=== PATIENT | female | born 1950 | race Caucasian/White ===

== ENCOUNTER 2020-02-13 17:55 | Observation (INO) | payer MEDICARE, OTHER, SELFPAY ==
[2020-02-13] VITALS (10 sets, daily range): BP systolic 138–185; BP diastolic 46–115; PULSE 55–87; RESP 12–18; TEMP 36.8; O2SAT 95–100
--- NOTE | ~2020-02-13 | XR_ITS ---
EXAMINATION: XR chest 2V DATE: 02/13/2020 19:15 INDICATION: Dizziness TECHNIQUE: PA and lateral views of the chest are obtained. COMPARISON: 03/12/2017 FINDINGS: The lungs are free of acute opacities. There is no pleural effusion or pneumothorax. The ca rdiomediastinal silhouette is normal. There is mild thoracic spondylosis. There is thoracolumbar dext rocurvature. IMPRESSION: 1. No acute cardiopulmonary abnormality. Reviewed, dictated and finalized at location A. LE PLACER
--- NOTE | ~2020-02-13 | CT_ITS ---
EXAMINATION: CT brain wo con INDICATION: Dizziness COMPARISON: 03/12/2017 TECHNIQUE: Standard unenhanced head CT. The dose-length product (DLP) was 605.33 mGy-cm. The mA was a djusted according to patient size. Iterative reconstruction technique was employed. FINDINGS: There is no acute intraparenchymal hemorrhage. No evidence of mass lesion. No evidence of a cute infarction. There is mild periventricular and subcortical hypodensity probably related to small vessel ischemic disease. There is mild prominence of the sulci and ventricles related to cerebral atr ophy. Intracranial calcified cerebral atherosclerosis is noted. There are no extra-axial collections. There is no mass effect or midline shift. The orbits and soft tissues are unremarkable. The visuali zed sinuses and mastoid air cells are well aerated. IMPRESSION: 1. No acute intracranial abnormality. 2. Age related findings. Reviewed, dictated and finalized at location A. PROCESSING OPERATOR
--- NOTE | ~2020-02-13 | CT_ITS ---
EXAMINATION: CTA brain carotid DATE: 02/13/2020 21:28 INDICATION: Dizziness. TECHNIQUE: Computed tomographic angiography (CTA) of the head was performed with 100 mL Omnipaque-350 intravenous contrast. CTA of the neck was performed with intravenous contrast. Automated exposure co ntrol and iterative reconstruction technique were employed. The dose-length product was 1005.62 mGy-c m. Maximum intensity projection and volume rendered 3D-reconstructions were created by the [employer] st on a separate workstation. COMPARISON: Head CT 02/13/2020, 03/12/2017, brain MRI 03/12/2017 FINDINGS: HEAD CTA: There is an old infarct in the left thalamus. There is no intracranial hemorrhage, acute in farction, or abnormal intracranial mass lesion. The ventricles are normal in size. There is mild muco gaby thickening in left maxillary sinus. The mastoid air cells are normal. The orbits are normal. Left vertebral artery is dominant. There is no significant stenosis of basilar artery or the posterior ce rebral arteries. There is no significant stenosis of the intracranial internal carotid arteries or an terior or middle cerebral arteries. Anterior communicating artery is normal. The posterior communicat ing arteries are normal. There is no aneurysm. NECK CTA: There is mild scarring at the lung apices. There are no pathologically enlarged lymph nodes . There is no significant stenosis of the vertebral arteries. There is mild plaque in the proximal in ternal carotid ovaries. There is 0% stenosis of the proximal right internal carotid artery relative to normal distal artery lumen diameter (NASCET criteria). There is 0% stenosis of the proximal left i nternal carotid artery relative to normal distal artery lumen diameter. There is severe cervical spon dylosis. IMPRESSION: 1. Old infarct in the left thalamus. 2. No aneurysm or significant intracranial arterial stenosis. 3. 0% stenosis of the proximal internal carotid arteries relative to normal distal artery lumen diame ters (NASCET criteria). Reviewed, dictated and finalized at location B. IAC CATH TECHNOLOGIST IMPRESSION: 1. Old infarct in the left thalamus. 2. No aneurysm or significant intracranial arterial stenosis. 3. 0% stenosis of the proximal internal carotid arteries relative to normal dis caitlin artery lumen diameters (NASCET criteria).
--- NOTE | ~2020-02-13 | MR_ITS ---
EXAMINATION: MR brain/brain stem wo/w con DATE: 02/14/2020 13:14 INDICATION: Dizziness. Confusion. TECHNIQUE: Magnetic resonance imaging (MRI) of the brain and brainstem was performed without and with 12 mL MultiHance intravenous contrast. Sequences included sagittal and axial T1-weighted FSE, axial diffusion-weighted FS EPI, axial T2*-weighted GRE, axial T2-weighted FLAIR Propeller, and axial T2-we ighted Propeller. Postcontrast sequences included axial and coronal T1-weighted FSE. Apparent diffusi on coefficient (ADC) maps were created. COMPARISON: Brain MRI 03/12/2017, head CT 02/13/2020 FINDINGS: There is an old infarct in left thalamus. There are scattered areas of nonspecific increase d T2-weighted signal intensity in the cerebral white matter, which is within normal limits for the pa tient's age. There is no intracranial hemorrhage, acute infarction, or abnormal intracranial mass les ion. The ventricles are normal in size. The paranasal sinuses are clear. The orbits are normal. The m astoid air cells are normal. IMPRESSION: 1. Old infarct in left thalamus. Reviewed, dictated and finalized at location B. D SERVICES ANALYST
--- NOTE | 2020-02-13 18:03 | ECG_ITS ---
Measurements Intervals Frannie Rate: 77 P: 63 DE: 181 QRS: 35 QRSD: 89 T: 67 QT: 377 QTc: 427 Interpretive Statements SINUS RHYTHM VENTRICULAR PREMATURE COMPLEX ST ABNORMALITY IN LATERAL LEADS- CONSIDER ISCHEMIA ABNORMAL ECG Electronically Signed On 02-13-2020 18:08:50 SECURITY SUPERVISOR by José Jarrett D.O.
[2020-02-13 18:41] LABS: Basophils Absolute Auto 0.1 K/mm3 (0.0-0.1); Basophils Percent Auto 0.9 % (0.2-1.2); Eosinophils Absolute Auto 0.3 K/mm3 (0-0.3); Eosinophils Percent Auto 3.8 % (0-4.4); Hematocrit 46.9 % (37.0-47.0); Immature Granulocyte Absolute 0.01 K/mm3 (0.00-0.031); Immature Granulocyte Percent A 0.1 % (0-0.5); Lymphocytes Absolute Auto 1.87 K/mm3 (0.9-3.2); Lymphocytes Percent Auto 27.3 % (18.3-44.2); Mean Corpuscular HGB Conc 34.1 g/dl (32-36); Mean Corpuscular Volume 87.8 fl (80-100); Mean Platelet Volume 11.2 fl (7.4-10.4); Monocytes Absolute Auto 0.6 K/mm3 (0.1-0.6); Neutrophils Absolute Auto 4.1 K/mm3 (1.3-6.7); Neutrophils Percent Auto 59.9 % (45.5-73.1); Platelet Count Result 170 k/mm3 (150-375); Red Blood Count 5.34 M/mm3 (4.2-5.4); Red Cell Distribution Width 12.8 % (11.5-14.5); White Blood Count 6.9 K/mm3 (4.5-10.0)
[2020-02-13 18:52] LABS: Anion Gap 6 mmol/L (8-16); Blood Urea Nitrogen 15 mg/dL (7-17); Calcium 9.3 mg/dL (8.4-10.2); Carbon Dioxide 30 mmol/L (22-30); Chloride 104 mmol/L (98-107); Estimated CRCL calculation 66 ml/min; Estimated Glomerular Filt Rate > 60; Glucose 92 mg/dL (65-105); Potassium 3.9 mmol/L (3.4-5.0); Sodium 140 mmol/L (137-145)
[2020-02-13] MEDS: LABETALOL HCL INJ 100 MG/20 ML VIAL 10 MG IV PUSH (19:02)
--- NOTE | 2020-02-13 19:03 | ED.DIZZY ---
HPI - Dizziness General Chief Complaint: Dizziness <Emily Cantu PA-C - Last Filed: 02/13/20 21:49> Stated Complaint: htn <WILLIAMS Prabhakar Last Filed: 02/13/20 21:49> Time Seen by Provider: 02/13/20 18:44 <WILLIAMS Prabhakar Last Filed: 02/13/20 21:49> Source: patient <WILLIAMS Prabhakar Last Filed: 02/13/20 21:49> Mode of arrival: ambulatory <WILLIAMS Prabhakar Last Filed: 02/13/20 21:49> Limitations: no limitations <WILLIAMS Prabhakar Last Filed: 02/13/20 21:49> History of Present Illness HPI Narrative: This is a 69 year old female that presents to the ER for dizziness since this afternoon. Reports she was sitting at home and started to feel dizzy. Reports over the last couple of weeks she has been having pressure in her ears. She thought she may have an inner ear infection so she went to the urgent care. Reports her blood pressure was elevated there, so they sent her to the ED. Reports a brief episode of chest pain while at the urgent care that she describes as an ache. Reports this resolved on its own. Denies fever, vision changes, vomiting, numbness or weakness. <Emily Cantu PA-C - Last Filed: 02/13/20 21:49> Related Data Allergies/Adverse Reactions: Allergies Allergy/AdvReac Type Severity Reaction Status Date / Time No Known Allergies Allergy Mild Verified 02/13/20 18:26 <WILLIAMS Prabhakar Last Filed: 02/13/20 21:49> Review of Systems Review of Systems: Narrative: CONSTITUTIONAL: Denies fever EYES: Denies visual changes ENT: Reports otalgia. CARDIOVASCULAR: Denies current chest pain RESPIRATORY: Denies cough or dyspnea. GASTROINTESTINAL: Denies vomiting GENITOURINARY: Denies dysuria NEUROLOGIC: Denies headache, numbness, or weakness. <WILLIAMS Prabhakar Last Filed: 02/13/20 21:49> All systems reviewed & are unremarkable except as noted in HPI and below <Emily Cantu PA-C - Last Filed: 02/13/20 21:49> PMFSH Past Medical History Medical History: Medical History (Updated 02/13/20 @ 21:45 by Emily Cantu PA-C) History of CVA (cerebrovascular accident) History of hyperlipidemia History of hypertension History of hypothyroidism <Emily Cantu PA-C - Last Filed: 02/13/20 21:49> Exam Narrative: Exam Narrative: GENERAL: Well-appearing, well-nourished, and in no acute distress. HEAD: Normocephalic, atraumatic. EYES: PERRLA and EOMI. ENT: Nares clear, no rhinorrhea or epistaxis. Mucous membranes moist. Oropharynx without tonsillar hypertrophy exudate or other lesions. Bilateral TMs pearly pendleton non-bulging NECK: Supple. No adenopathy or masses. No carotid bruits or JVD CHEST: Clear to auscultation. No respiratory distress. No wheezes rales or rhonchi HEART: Regular rate and rhythm. No murmur heard. Normal peripheral pulses. EXTREMITIES: Normal range of motion. No edema. Strength equal in bilateral upper and lower extremities (5/5) SKIN: Warm, dry, no rash. NEURO: No focal deficits. Alert and oriented x3. Cranial nerves II through XII grossly intact. Normal aprwyh-my-twoa PSYCH: Normal mood and affect <Emily Cantu PA-C - Last Filed: 02/13/20 21:49> Course MANDOLIN REPAIRER/PA Physician Supervision Pt seen and examined, vss, nad, RRR, ctab, awake and oriented x 3, strength, sensation within normal limits. Agree with current plan and treatment. <Lul Grubbs MD - Last Filed: 02/13/20 21:51> Consultations Consultation #1: Spoke with Dr. Dey about patient and work-up who will consult. Would like CTA and MRI of the brain ordered. <Emily Cantu PA-C - Last Filed: 02/13/20 21:49> Date: 02/13/20 <Emily Cantu PA-C - Last Filed: 02/13/20 21:49> Time: 21:48 <Emily Cantu PA-C - Last Filed: 02/13/20 21:49> Consultation #2: Spoke with hospitalist about patient and work-up who accepts admission <Emily Cantu PA-C - Last Filed: 02/13/20 21:49> Date: 02/13/20 <E
[2020-02-13 19:24] LABS: Troponin I < 0.012 ng/mL (0.000-0.034)
[2020-02-13] MEDS: MECLIZINE HCL 25 MG TABLET PO (19:29)
[2020-02-13] MEDS: SODIUM CHLORIDE 0.9% IV 1,000 ML 999 ML IV CONT (19:29)
--- NOTE | 2020-02-13 20:33 | PC.NURSE ---
PT AMBULATED TO RESTROOM W/ NO DIFFICULTY
--- NOTE | 2020-02-13 22:25 | PM.IMHP ---
H&P: HPI History of Present Illness Date/Time: 02/13/20 22:25 Chief complaint: Rule out CVA, hypertensive urgency Narrative: This is a pleasant 69 year old female with known history of previous CVA, HTN, and hypothyroidism who presented from Urgent Care today to the hospital after she was found to have an elevated blood pressure. The patient went to Urgent care because she started to experience dizziness this afternoon while she was sitting on her cough. She has had left ear pressure recently and believed that she might have been having another ear infection as she has had several ear infections recently. The patient's dizziness improved in the ER once her blood pressure started to come down with medications. She denies any blurry vision or visual disturbances. She does admit that when she was dizzy she was also somewhat confused but did not actually have any slurred speech. She also denies any facial droop, headache, nausea, vomiting, passing out, seizure like activity, numbness, tingling, or focal weakness. The patient denies started any new medications and states she is currently looking for a new PCP. She does report that en route to the hospital she had a brief episode of chest discomfort that lasted a brief moment. Brain CT was unremarkable for any acute pathology. Routine labs were obtained and were unremarkable. The patient was treated with aspirin and ER provider has consulted Neurology who has asked that we obtain a Brain MRI in am and they will see her. No other complaints. Review of Systems Review of Systems: All systems reviewed & are unremarkable except as noted in HPI and below PMFSH Past Medical History Medical History (Updated 02/14/20 @ 06:35 by Antonio Zepeda MD) History of CVA (cerebrovascular accident) History of hyperlipidemia History of hypertension History of hypothyroidism Surgical History Surgical History (Updated 02/13/20 @ 22:40 by Antonio Zepeda MD) H/O: hysterectomy Family History Family History (Updated 02/14/20 @ 00:31 by Rosaura Maddox RN) Mother Diabetes mellitus Sibling Diabetes mellitus Father Heart disease Other Hypertension Social History Social History (Updated 02/13/20 @ 22:40 by Antonio Zepeda MD) Smoking status: Never smoker Alcohol intake: never Substance use: never Gender identity (if verbalized by the patient): Female Spiritual care concerns: No Meds Home Medications and Allergies Home Medications Medication Instructions Recorded Confirmed Type aspirin [Adult Aspirin EC Low 81 mg PO DAILY 02/14/20 02/14/20 History Strength] clopidogrel [Plavix] 75 mg PO DAILY 02/14/20 02/14/20 History estradiol [Estradiol Transdermal 1 patch TRANSDERMAL WEEKLY 02/14/20 02/14/20 History Patch] levothyroxine [Synthroid] 88 mcg PO DAILY 02/14/20 02/14/20 History lisinopril 20 mg PO DAILY 02/14/20 02/14/20 History metoprolol succinate 100 mg PO DAILY 02/14/20 02/14/20 History whrujpcawtbr-vga-onuq-FA-vit K 1 tablet PO DAILY 02/14/20 02/14/20 History [Adults Multivitamin] simvastatin 40 mg PO HS 02/14/20 02/14/20 History Allergies Allergy/AdvReac Type Severity Reaction Status Date / Time No Known Allergies Allergy Mild Verified 02/13/20 18:26 Vital Signs Vital Signs - 24 hr 02/13/20 17:59 02/13/20 18:15 02/13/20 19:00 Temperature 36.8 C Pulse Rate 81 76 55 L Respiratory Rate 15 12 16 Blood Pressure 185/115 H 170/97 H 181/46 H Pulse Oximetry 99 95 99 02/13/20 19:27 02/13/20 20:26 02/13/20 20:30 Temperature Pulse Rate 78 74 87 Respiratory Rate 18 15 Blood Pressure 155/90 H 155/79 H 154/85 H Pulse Oximetry 99 96 02/13/20 20:43 02/13/20 21:29 02/13/20 22:16 Temperature Pulse Rate 80 82 74 Respiratory Rate 18 18 Blood Pressure 153/87 H 139/83 147/89 H Pulse Oximetry 99 100 Exam Const: General: cooperative, healthy appearing, no acute distress, alert and awake Nutritional Frances
[2020-02-14 02:00] VITALS: BP 147/79; PULSE 70; RESP 20; TEMP 36.5; O2SAT 98
[2020-02-14 02:05] VITALS: BMI 22.2
[2020-02-14 04:00] VITALS: PULSE 64
[2020-02-14 05:47] LABS: Basophils Absolute Auto 0.1 K/mm3 (0.0-0.1); Basophils Percent Auto 1.1 % (0.2-1.2); Eosinophils Absolute Auto 0.2 K/mm3 (0-0.3); Eosinophils Percent Auto 2.9 % (0-4.4); Hematocrit 43.5 % (37.0-47.0); Hemoglobin 14.5 g/dL (12.0-15.0); Immature Granulocyte Absolute 0.01 K/mm3 (0.00-0.031); Immature Granulocyte Percent A 0.2 % (0-0.5); Lymphocytes Absolute Auto 2.05 K/mm3 (0.9-3.2); Mean Corpuscular HGB Conc 33.3 g/dl (32-36); Mean Corpuscular Hemoglobin 29.4 pg (26-34); Mean Corpuscular Volume 88.1 fl (80-100); Mean Platelet Volume 11.5 fl (7.4-10.4); Monocytes Absolute Auto 0.5 K/mm3 (0.1-0.6); Monocytes Percent Auto 7.3 % (2.6-8.5); Neutrophils Absolute Auto 3.8 K/mm3 (1.3-6.7); Neutrophils Percent Auto 57.5 % (45.5-73.1); Platelet Count Result 160 k/mm3 (150-375); Red Blood Count 4.94 M/mm3 (4.2-5.4); Red Cell Distribution Width 12.7 % (11.5-14.5); White Blood Count 6.6 K/mm3 (4.5-10.0)
[2020-02-14 05:57] LABS: Anion Gap 6 mmol/L (8-16); Blood Urea Nitrogen 10 mg/dL (7-17); Calcium 8.6 mg/dL (8.4-10.2); Carbon Dioxide 30 mmol/L (22-30); Chloride 106 mmol/L (98-107); Estimated CRCL calculation 73 ml/min; Estimated Glomerular Filt Rate > 60; Glucose 86 mg/dL (65-105); Magnesium 2.4 mg/dL (1.6-2.3); Potassium 3.5 mmol/L (3.4-5.0); Sodium 142 mmol/L (137-145)
[2020-02-14 06:00] VITALS: BP 139/63; PULSE 68; RESP 21; TEMP 36.3; O2SAT 100
[2020-02-14 06:40] LABS: Free T4 Free Thyroxine 1.48 ng/mL (0.78-2.19)
--- NOTE | 2020-02-14 06:53 | ADMGEN ---
This patient, Mabel Stanley, was admitted to Medical Room 261-01 on 02/14/2020 at 0005. Patient/family oriented to hospital policies and general routines including ID bracelet, bed and alarms, visiting hours, pain management, procedures, bathroom and other care routines, personal items, smoking policy, room service/diet, and visiting hours. Information on how to activate the Rapid Response Team has been discussed. Patient/Family are encouraged to report perceived risks to care and to ask questions if they do not understand what they are told or what they should do.
[2020-02-14 08:00] VITALS: PULSE 79
[2020-02-14] MEDS: CLOPIDOGREL BISULFATE 75 MG TABLET PO (09:09)
[2020-02-14] MEDS: lisinopriL 20 MG TABLET PO (09:09)
[2020-02-14] MEDS: ASPIRIN 81 MG ENTERIC TABLET PO (09:09)
[2020-02-14 09:10] VITALS: PULSE 84
[2020-02-14] MEDS: METOPROLOL SUCCINATE EXT REL 100 MG TABCR PO (09:10)
--- NOTE | 2020-02-14 09:43 | WPDNEURCNPN ---
Assessment and Plan Assessment and plan (1) Bradycardia: Code(s): R00.1 - Bradycardia, unspecified Status: Acute (2) History of hyperlipidemia: Code(s): Z86.39 - Personal history of other endocrine, nutritional and metabolic disease Status: Chronic (3) Dizziness: Code(s): R42 - Dizziness and giddiness Status: Acute (4) Transient ischemic attack: Code(s): G45.9 - Transient cerebral ischemic attack, unspecified Status: Acute Additional Plan nonspecific dizziness with history of hypertension in the past documented old stroke and negative CTA scan of the brain and neck at this time patient can be treated only with anti anti-platelet medication on a regular basis and follow up with a physician on a regular basis as well Consult date: 02/14/20 Time Seen: 09:45 HPI: Mabel Stanley is a 69 year old female has been admitted to the hospital subsequent to her being found with elevated blood pressure, reportedly initially she went to the urgent care where she complained of dizziness along with the pressure in her left ear, once in the ER blood pressure started to come down .she gave history of no associated neurological symptomatology but was noted by the ER personnel to have slurred speech.she gave history of no other neurological symptoms .she did have and brief episode of chest discomfort. CT scan of the brain was normal she received aspirin and was admitted to the hospital for further evaluation, in the past she has ongoing history of hyperlipidemia,hypertension and hypothyroidism in addition to history of hysterectomy. she is not a smoker ,initial CT scan of the brain was negative and CTA documented no stenosis of the proximal internal carotid arteries relative the normal distal artery lumen no aneurysm and no significant involvement of the intracranial arteries and additionally documented old infarct in the left thalamus routine lab studies were normal Review of Systems Review of Systems: All systems reviewed & are unremarkable except as noted in HPI and below PMFSH Past Medical History Medical History History of CVA (cerebrovascular accident) History of hyperlipidemia History of hypertension History of hypothyroidism Surgical History Surgical History H/O: hysterectomy Family History Family History Mother Diabetes mellitus Sibling Diabetes mellitus Father Heart disease Other Hypertension Social History Social History Smoking status: Never smoker Alcohol intake: never Substance use: never Gender identity (if verbalized by the patient): Female Spiritual care concerns: No Meds Home Medications and Allergies Home Medications Medication Instructions Recorded Confirmed Type aspirin [Adult Aspirin EC Low 81 mg PO DAILY 02/14/20 02/14/20 History Strength] clopidogrel [Plavix] 75 mg PO DAILY 02/14/20 02/14/20 History estradiol [Estradiol Transdermal 1 patch TRANSDERMAL WEEKLY 02/14/20 02/14/20 History Patch] levothyroxine [Synthroid] 88 mcg PO DAILY 02/14/20 02/14/20 History lisinopril 20 mg PO DAILY 02/14/20 02/14/20 History metoprolol succinate 100 mg PO DAILY 02/14/20 02/14/20 History vzftayngcozr-esq-adhl-FA-vit K 1 tablet PO DAILY 02/14/20 02/14/20 History [Adults Multivitamin] simvastatin 40 mg PO HS 02/14/20 02/14/20 History Allergies Allergy/AdvReac Type Severity Reaction Status Date / Time No Known Allergies Allergy Mild Verified 02/13/20 18:26 Vital Signs Vital Signs - 24 hr 02/13/20 17:59 02/13/20 18:15 02/13/20 19:00 Temperature 36.8 C Pulse Rate 81 76 55 L Respiratory Rate 15 12 16 Blood Pressure 185/115 H 170/97 H 181/46 H Pulse Oximetry 99 95 99 02/13/20 19:27 02/13/20 20:26 02/13/20 20:30 Temperature Puls
[2020-02-14] MEDS: LEVOTHYROXINE SODIUM 88 MCG TABLET PO (10:36)
[2020-02-14 12:00] VITALS: PULSE 72
--- NOTE | 2020-02-14 15:04 | PM.DS ---
DS: Admitting Diagnosis Admitting Diagnosis Admitting Diagnosis: Rule out CVA, hypertensive urgency DS: Discharge Diagnosis Discharge Diagnosis (1) Dizziness: Code(s): R42 - Dizziness and giddiness Status: Acute Assessment and Plan: Patient presented complaints of dizziness That resolved upon arrival. May have been secondary to hypertensive urgency and/or eustachian tube dysfunction. She has a history of CVA and TIA. Thorough stroke workup performed as noted below negative for any acute findings. Dizziness resolved. (2) Hypertensive urgency: Code(s): I16.0 - Hypertensive urgency Status: Acute Assessment and Plan: Blood pressure on arrival was 185/115. She received a one time dose of labetalol which improved her blood pressure to 150s/80s. Blood pressure was monitored closely overnight and returned to baseline with home regimen of lisinopril and metoprolol. BP at time of discharge was 139/63. Discussed avoiding decongestant medications that can raise blood pressure. Recommended monitoring blood pressure 3 to 4 times weekly at home and recording for review by PCP to determine if adjustments to home regimen should be made.. (3) History of CVA (cerebrovascular accident): Code(s): Z86.73 - Personal history of transient ischemic attack (TIA), and cerebral infarction without residual deficits Status: Inactive Assessment and Plan: Reports history CVA 10 years ago. Reports personal history multiple TIAs, most recently 1 year ago. She notes residual sensory deficits of right side. Head CT negative for any acute findings. Head/neck CTA showed old infarct in left thalamus, no evidence of aneurysm or stenosis, and 0% stenosis of proximal internal carotid arteries. MRI also showed old infarct in left thalamus with no acute findings. Continue aspirin and Plavix. Follow-up with neurology in 3 months. (4) Eustachian tube dysfunction: Code(s): H69.80 - Other specified disorders of Eustachian tube, unspecified ear Status: Acute Assessment and Plan: Patient complained of congestion and ear fullness. She had been evaluated in urgent care several days prior and was not found to have an infection. She began taking xjsz-ygd-ybqkoxq decongestants which improved her aural fullness. We discussed avoiding decongestants that can increase her blood pressure. She should follow-up with her PCP and may benefit from referral to ENT if eustachian tube dysfunction persists. She was given a prescription for nasal saline spray. (5) History of hypothyroidism: Code(s): Z86.39 - Personal history of other endocrine, nutritional and metabolic disease Status: Chronic Assessment and Plan: T4 wnl. Continue levothyroxine. (6) History of hyperlipidemia: Code(s): Z86.39 - Personal history of other endocrine, nutritional and metabolic disease Status: Chronic Assessment and Plan: Continue simvastatin. DS: Summary Hospital Course Reason for hospitalization: Dizziness Hospital Course: Date of admission: 02/13/2020 Date of discharge: 02/14/2020 Mabel Stanley is a 69-year-old female with history of CVA, TIA, hyperlipidemia, and hypertension who presented to the emergency department on 02/13/2020 with complaints of dizziness that began earlier that day. She had been complaining of ear fullness and was evaluated in urgent care. She had been taking qwgn-lkv-kwnmjeu decongestant medication. Upon arrival to the urgent care, her BP was noted to be elevated and she was referred to the ED. At presentation, BP 185/115, additional vital signs stable. BP improved to 139/83 with a dose of labetalol. CBC and electrolytes within normal limits, troponin negative, head CT with no acute findings and chest x-ray with no cardiopulmonary abnormalities. She was admitted to the hospitalist service for further evaluation and management was seen in consultatio
== END 2020-02-14 16:25 | disposition home or self-care (01) ==
LOC: ANHED 21:45 → ANH2MED 22:52
PROVIDERS: Physician Assistant; Admitting Provider Family Medicine; Emergency Provider Emergency Medicine; Visit Provider Family Medicine
DX: R42 Dizziness and giddiness (principal); I16.0 Hypertensive urgency; Z86.73 Personal history of transient ischemic attack (TIA), and cerebral infarction without residual deficits; H69.80 Other specified disorders of Eustachian tube, unspecified ear; E78.5 Hyperlipidemia, unspecified; E03.9 Hypothyroidism, unspecified; R94.31 Abnormal electrocardiogram [ECG] [EKG]; Z86.39 Personal history of other endocrine, nutritional and metabolic disease
CPT/HCPCS: 36415; 70450; 70496; 70498; 70553; 71046; 80048; 83735; 84439; 84484; 85025; 93005; 96361; 96374; 99285; A9270; A9577; G0378; J7030; Q9967

== ENCOUNTER 2024-04-03 15:06 | Emergency (ER) | payer MEDICARE, OTHER, SELFPAY ==
--- NOTE | ~2024-04-03 | XR_ITS ---
XR hip RT 2V w AP pelvis Ordering provider: Luke Newman MD History: . fall-PAIN IN RIGHT BUTTOCK AND HIP . Comparison: None. FINDINGS: BONES: Sclerotic changes in the area of the greater tuberosity. Possibility of fracture cannot be exc luded although less likely. Small bony fragment seen near to the greater tuberosity is most likely se samoid bone. If still suspicious CT is advised. HIP JOINT SPACES: Normal. SACROILIAC JOINT SPACES/LUMBAR SPINE: The sacroiliac joint spaces are normal. Mild degenerative sanchez es of the visualized lower lumbar spine. PUBIC SYMPHYSIS: Pubic symphysitis. SOFT TISSUES: Normal. IMPRESSION: No definite acute osseous abnormality pelvis and right hip. Sclerotic area in the greater tuberosity. If still clinically suspicious CT is advised. Reviewed, dictated and finalized at location A. [employer] G[employer] DES[employer] IMPRESSION: No definite acute osseous abnormality pelvis and right hip. Sclerotic area in t he greater tuberosity. If still clinically suspicious CT is advised.
--- NOTE | ~2024-04-03 | CT_ITS ---
CT lumbar spine wo con Ordering provider: Adis Castillo PA-C History: 73 years Female with . fall from 3 foot ladder . Comparison: None. Technique: CT lumbar spine without contrast. Automated exposure control and iterative reconstruction technique were employed. The dose-length product was 428.04 mGy-cm. FINDINGS: VERTEBRAE: Normal height and alignment. No subluxation or visible acute fracture. Lumbarization of S1 is noted. Mild levoscoliosis. DISC SPACES: Well maintained. Facet joint disease at the level of L4-L5, and L5-S1. T12-L1: No stenosis. L1-L2: No stenosis. L2-L3: No stenosis. L3-L4: No stenosis. Mild diffuse disc bulge with slight narrowing of the right foramen. L4-L5: No stenosis. Diffuse disc bulge with slight narrowing of the right foramen. L5-S1: No stenosis. Diffuse disc bulge with slight bilateral narrowing of the foramina. Root jimy paulina is highly suggestive. PARASPINOUS SOFT TISSUES: Mild atheromatous disease of the abdominal aorta. IMPRESSION: No acute osseous abnormality. Multilevel disc bulges with variable degrees of intervertebral foraminal narrowing. Reviewed, dictated and finalized at location A. [employer] P[employer] IMPRESSION: No acute osseous abnormality. Multilevel disc bulges with variable degrees of intervertebral foraminal narrow ing.
[2024-04-03 15:35] VITALS: BP 160/85; PULSE 70; RESP 16; TEMP 36.7; O2SAT 100
--- NOTE | 2024-04-03 16:39 | ED.FALL ---
HPI - Fall General Chief Complaint: Fall Stated Complaint: fell from ladder. Time Seen by Provider: 04/03/24 16:06 Source: patient Mode of arrival: ambulatory Limitations: no limitations History of Present Illness HPI Narrative: This is a 73-year-old female who presents to the ED for chief complaint of a fall from ladder today. Reports that she fell approximately 3 ft from the ground and landed on the left side. She reports a little bit of left shoulder and left hip pain that subsided, however now she is having increasing right hip pain with ambulation. States she is able to bear weight but it is painful to the right posterior hip and back. Denies numbness, weakness, bowel or bladder dysfunction. Denies any head injury or other sites of injury. Related Data Home Medications ?Medication ?Instructions ?Recorded ?Confirmed ?Last Taken ?Type aspirin 81 mg tablet,delayed 81 mg PO DAILY 02/14/20 02/14/20 Unknown History release clopidogrel 75 mg tablet (Plavix) 75 mg PO DAILY 02/14/20 02/14/20 Unknown History estradiol 0.05 mg/24 hr weekly 1 patch transdermal WEEKLY 02/14/20 02/14/20 Unknown History transdermal patch levothyroxine 88 mcg tablet 88 mcg PO DAILY 02/14/20 02/14/20 Unknown History (Synthroid) lisinopril 20 mg tablet 20 mg PO DAILY 02/14/20 02/14/20 Unknown History metoprolol succinate 100 mg 100 mg PO DAILY 02/14/20 02/14/20 Unknown History tablet,extended release 24 hr multivit with minerals-iron 18 1 tablet PO DAILY 02/14/20 02/14/20 Unknown History mg-folic ac 400 mcg-vit K 25 mcg tablet (Adults Multivitamin) simvastatin 40 mg tablet 40 mg PO HS 02/14/20 02/14/20 Unknown History Allergies Allergy/AdvReac Type Severity Reaction Status Date / Time No Known Allergies Allergy Mild Verified 02/13/20 18:26 Review of Systems Review of Systems: All systems as dictated in HPI [facility] Past Medical History Medical History (Updated 04/03/24 @ 18:05 by Adis Castillo PA-C) History of hyperlipidemia History of hypothyroidism History of CVA (cerebrovascular accident) History of hypertension Surgical History Surgical History H/O: hysterectomy Family History Family History Mother Diabetes mellitus Sibling Diabetes mellitus Father Heart disease Other Hypertension Social History Social History Smoking status: Never smoker Alcohol intake: never Substance use: never Gender identity (if verbalized by the patient): Female Spiritual care concerns: No Exam Narrative: GENERAL: Well-appearing, well-nourished, and in no acute distress. HEAD: Normocephalic, atraumatic. EYES: PERRLA and EOMI. ENT: Nares clear, no rhinorrhea or epistaxis. Mucous membranes moist. Oropharynx without tonsillar hypertrophy exudate or other lesions. NECK: Supple. No adenopathy or masses. CHEST: No respiratory distress. Clear to auscultation. No wheezes rales or rhonchi HEART: Regular rate and rhythm. No murmur heard. Normal peripheral pulses. ABDOMEN: Soft, nontender, nondistended, normal active bowel sounds. MSK: Ambulatory without assistive devices, however does appear in pain. Right posterior hip/SI joint tenderness present. Mild lumbar spine tenderness to the midline. 5/5 strength and sensation to the upper and lower extremities. Normal range of motion. No edema. SKIN: Warm, dry, no rash. NEURO: Alert and oriented x4. No focal deficits. PSYCH: Normal mood and affect. Course Vital Signs Vital signs: Vital Signs Temperature 98.1 F 04/03/24 15:35 Pulse Rate 70 04/03/24 15:35 Respiratory Rate 16 04/03/24 15:35 Blood Pressure 160/85 H 04/03/24 15:35 Pulse Oximetry 100 04/03/24 15:35 Temperature 97.8 F 04/03/24 18:32 Pulse Rate 78 04/03/24 18:32 Respiratory Rate 16 04/03/24 18:32 Blood Pressure 136/80 04/03/24 18:32 Pulse Oximetry 100 04/03/24 18:32 MDM - Fall MDM Narrative Medical decision making narrative: 73-year-old female presenting for fall from 3 ft height with subsequent right posterior hip pain. Vitals are normal. Exam shows tenderness to the above area. X-rays of the right hip and CT scan of the lumbar spine are negative for acute osseous findings. Presentation consistent with musculoskeletal strain. Pt will be discharged in stable condition. Return precautions given and supportive measures discussed. Pt is understanding and agreeable with plan for discharge and follow-up with PCP. Discharge Plan Discharge Clinical Impression: Fall, Acute pain of right hip Patient Disposition: Home, Self-Care Condition: Stable Instructions: Antibiotic Form Additional Instructions: Exam and imaging today are reassuring. There is no fracture. There is degeneration of the joints which would cause a flare-up of pain with this fall. Please take Tylenol arthritis regularly for pain control. Follow-up with PCP on this issue. If you have any new or worsening symptoms please return to the ER for further evaluation. Patient Language: [place] Prescriptions: No Action lisinopril 20 mg Tablet 20 mg PO DAILY estradiol 0.05 mg/24 hr Patch Weekly 1 patch TRANSDERMAL WEEKLY Patient Comments: Pt takes every 3-4 days Friday and Friday metoprolol succinate 100 mg Tablet Extended Release 24 Hr 100 mg PO DAILY clopidogrel [Plavix] 75 mg Tablet 75 mg PO DAILY aspirin 81 mg Tablet,Delayed Release (Dr/Ec) 81 mg PO DAILY simvastatin 40 mg Tablet 40 mg PO HS levothyroxine [Synthroid] 88 mcg Tablet 88 mcg PO DAILY Adults Multivitamin 18 mg iron-400 mcg-25 mcg Tablet 1 tablet PO DAILY sodium chloride [Nasal [place] (sodium chloride)] 0.65 % aerosol,spray 2 spray intranasal QID PRN (Reason: congestion) Qty: 15 0RF Follow-up/Referrals: PHYSICIAN,DRY CLEANING MANAGER [Primary Care Provider] - Time of Disposition: 18:05
[2024-04-03] MEDS: ACETAMINOPHEN 500 MG TABLET 1000 MG PO (16:48)
[2024-04-03 18:32] VITALS: BP 136/80; PULSE 78; RESP 16; TEMP 36.6; O2SAT 100
== END 2024-04-03 18:34 | disposition home or self-care (01) ==
PROVIDERS: Emergency Provider Physician Assistant
DX: S79.911A Unspecified injury of right hip, initial encounter (principal); M51.369 Other intervertebral disc degeneration, lumbar region without mention of lumbar back pain or lower extremity pain; M51.379 Other intervertebral disc degeneration, lumbosacral region without mention of lumbar back pain or lower extremity pain; W11.XXXA Fall on and from ladder, initial encounter
CPT/HCPCS: 72131; 73502; 99284; A9270